=== PATIENT | female | born 1980 | race Caucasian/White ===

== ENCOUNTER 2023-11-23 14:05 | Emergency (ER) | payer SELFPAY ==
[~2023-11-23] VITALS: Ht 170.2 cm; Wt 137.0 kg
[2023-11-23 14:41] LABS: DIFFERENTIAL COMMENT 0; EOSINOPHILS % 2.3 % (0.0-5.0); HEMATOCRIT. 34.9 % (36.0-48.0); HEMOGLOBIN. 11.3 g/dL (12.0-16.0); MEAN CORPUSCULAR HEMOGLOBIN 24.9 pg (28.0-32.0); MEAN CORPUSCULAR HGB CONC 32.3 g/dL (31.0-37.0); MEAN CORPUSCULAR VOLUME 77.1 fL (81.0-99.0); MEAN PLATELET VOLUME 7.4 fl (7.4-10.4); MONOCYTES % 6.1 % (2.0-8.0); NEUTROPHILS % 82.6 % (40.0-76.0); PLATELET 401 x1000/uL (130-400); RED BLOOD CELL COUNT 4.52 mill/uL (4.2-5.4); RED CELL DISTRIBUTION WIDTH 19.4 % (11.6-14.6); WHITE BLOOD COUNT 16.9 x1000/uL (4.5-11.0)
[2023-11-23 14:48] LABS: CHLORIDE 108 mEq/L (98-107); POTASSIUM 4.1 mEq/L (3.5-5.1); SODIUM 137 mEq/L (136-145)
[2023-11-23 14:49] LABS: CALCIUM 8.7 mg/dL (8.7-10.4); CARBON DIOXIDE 26 mEq/L (21-32)
[2023-11-23 14:54] LABS: CREATININE 0.8 mg/dL (0.6-1.0); GLUCOSE 130 mg/dL (70-105); UREA NITROGEN BLOOD 18 mg/dL (9-23)
[2023-11-23] MEDS: CEFTRIAXONE 1GM/50ML 50 ML IV ONE (15:56)
[2023-11-23 16:03] VITALS: PULSE 67; RESP 20; O2SAT 94
[2023-11-23 16:04] LABS: INR 1.1; PROTHROMBIN TIME 11.8 sec (9.6-11.0)
[2023-11-23] MEDS: IPRATROPIUM/ALBUTEROL 0.5-3(2.5)MG/3ML NEB HHN ONE (16:04)
[2023-11-23 16:12] LABS: CHLORIDE 107 mEq/L (98-107); POTASSIUM 4.2 mEq/L (3.5-5.1); SODIUM 138 mEq/L (136-145)
[2023-11-23 16:13] LABS: CARBON DIOXIDE 24 mEq/L (21-32)
[2023-11-23 16:18] LABS: CREATININE 0.8 mg/dL (0.6-1.0)
[2023-11-23 16:19] LABS: GLUCOSE 97 mg/dL (70-105); UREA NITROGEN BLOOD 17 mg/dL (9-23)
[2023-11-23] MEDS: AZITHROMYCIN 500MG/250ML 250 ML IV SCH (16:40)
[2023-11-23] MEDS: SODIUM CHLORIDE 0.9% 250 ML IV ONE (17:09)
[2023-11-23 18:37] LABS: TROPONIN I HIGH SENSITIVITY 31 ng/L (3.0-34)
[2023-11-23 20:35] LABS: TROPONIN I HIGH SENSITIVITY 27 ng/L (3.0-34)
[2023-11-24 00:33] LABS: TROPONIN I HIGH SENSITIVITY 20 ng/L (3.0-34)
[2023-11-24 08:34] VITALS: BP 132/48; PULSE 60; RESP 18; TEMP 37.00296; O2SAT 95
[2023-11-25] MEDS ORDERED: GABA800T97 PO (13:02)
[2023-11-25] MEDS ORDERED: BUPR8TAB3 PO (13:02)
[2023-11-25] MEDS ORDERED: LEVE750T4 PO (13:02)
[2023-11-26] MEDS ORDERED: LAM2 PO (06:24)
[2023-11-26] MEDS ORDERED: DIVA500T3 PO (06:24)
[2023-11-26] MEDS ORDERED: SERT100T PO (06:24)
[2023-11-26] MEDS ORDERED: KEPP500 PO (06:24)
[2023-11-26] MEDS ORDERED: AZIT500T8 PO (12:58)
[2023-11-26] MEDS ORDERED: FLUT1DIS3 INH (12:58)
[2023-11-26] MEDS ORDERED: LIP40 PO (12:58)
[2023-11-26] MEDS ORDERED: FERR-63 PO (12:58)
== END 2023-11-24 08:38 | disposition left against medical advice (07) ==
LOC: ER 14:18 → EDBEDREQ 15:34 → EDBEDREQTM 19:15 → EDBEDREQ 19:15 → EDBEDREQSVC 19:15 → EDBEDREQ 19:16 → ER 11-24 08:38
DX: J44.9 Chronic obstructive pulmonary disease, unspecified (principal); I50.9 Heart failure, unspecified; R09.02 Hypoxemia; Z90.49 Acquired absence of other specified parts of digestive tract; Z98.890 Other specified postprocedural states
CPT/HCPCS: 80048; 83880; 83605; 85025; 85610; 87040; 84484; 36415; 84145; 71045; 94640; 93005; 96367; 96361; 96365; 99291; J0456; J0696; Z7610 ×3; J7050